=== PATIENT | female | born 1935 | race African-American/Black ===

== ENCOUNTER 2021-08-07 08:01 | Inpatient (IN) | payer OTHER, MEDICAID ==
[~2021-08-07] VITALS: Ht 167.6 cm; Wt 73.0 kg
[2021-08-07 11:17] LABS: BASOPHILS % 0.1 % (0.0-2.0); CHLORIDE 103 mEq/L (98-107); EOSINOPHILS % 0.3 % (0.0-5.0); HEMATOCRIT. 33.2 % (36.0-48.0); HEMOGLOBIN. 10.9 g/dL (12.0-16.0); LYMPHOCYTES % 14.3 % (20.0-50.0); MEAN CORPUSCULAR HEMOGLOBIN 27.1 pg (28.0-32.0); MEAN CORPUSCULAR VOLUME 82.8 fL (81.0-99.0); MEAN PLATELET VOLUME 8.3 fl (7.4-10.4); MONOCYTES % 5.4 % (2.0-8.0); NEUTROPHILS % 79.9 % (40.0-76.0); PLATELET 261 x1000/uL (130-400); RED CELL DISTRIBUTION WIDTH 20.8 % (11.6-14.6)
[2021-08-07 11:32] LABS: ETHANOL BLOOD < 10 mg/dL
[2021-08-07] MEDS ORDERED: DIPHENHYDRAMINE 50MG/ML VIAL IV ONE (12:00)
[2021-08-07 12:39] LABS: *AMPHETAMINES SCREEN URINE NEGATIVE (NEGATIVE); *BARBITURATES SCREEN URINE NEGATIVE (NEGATIVE); *BENZODIAZEPINES SCREEN URINE NEGATIVE (NEGATIVE)
[2021-08-07 12:40] LABS: *COCAINE SCREEN URINE NEGATIVE (NEGATIVE); CANNABINOID URINE SCREEN NEGATIVE (NEGATIVE); METHADONE URINE SCREEN NEGATIVE (NEGATIVE); OPIATES URINE SCREEN NEGATIVE (NEGATIVE); PHENCYCLIDINE URINE SCREEN NEGATIVE (NEGATIVE)
[2021-08-07] MEDS ORDERED: HYDROCODONE/ACETAMINOPHEN 5/325MG TABLET PO PRN (16:30)
[2021-08-07] MEDS ORDERED: GUAIFENESIN 200MG/10ML SUGAR FREE UDC PO PRN (16:30)
[2021-08-07] MEDS ORDERED: DEXTROSE 50% WATER 50ML SYRINGE IV PRN (16:30)
[2021-08-07] MEDS ORDERED: HYDRALAZINE 20MG/ML VIAL IV PRN (16:30)
[2021-08-07] MEDS ORDERED: IPRATROPIUM/ALBUTEROL 0.5-3(2.5)MG/3ML NEB HHN PRN (16:30)
[2021-08-07] MEDS ORDERED: MORPHINE SULFATE 2 MG/ML CPJ (NOT FOR IM USE) IV PRN (16:30)
[2021-08-07] MEDS ORDERED: MAGNESIUM/ALUMINUM HYDROXIDE/SIMETHICONE 30ML UDC PO PRN (16:30)
[2021-08-07] MEDS ORDERED: CLONIDINE 0.1MG TABLET PO PRN (16:30)
[2021-08-07] MEDS ORDERED: ONDANSETRON HCL 4MG/2ML INJ IV PRN (16:30)
[2021-08-07] MEDS ORDERED: DOCUSATE SODIUM 100MG CAPSULE PO PRN (16:30)
[2021-08-07] MEDS ORDERED: ACETAMINOPHEN 325MG TABLET PO PRN (16:30)
[2021-08-07] MEDS ORDERED: LORAZEPAM 2MG/ML CPJ IV PRN (16:30)
[2021-08-07] MEDS: BLOOD SUGAR DIAGNOSTIC STRIP TEST SCH ×2 (16:52→21:00)
[2021-08-07] MEDS: INSULIN LISPRO 100 UNITS/ML SUBCUT SCH ×2 (17:50→21:57)
[2021-08-07 18:30] VITALS: BP 116/62
[2021-08-07 19:00] VITALS: BP 110/50
[2021-08-07 20:00] VITALS: BP 111/36
[2021-08-07] MEDS: ENOXAPARIN 30MG/0.3ML SYR SUBCUT SCH (20:41)
[2021-08-07] MEDS: DIPHENHYDRAMINE 50MG/ML VIAL IV PRN (20:46)
[2021-08-07] MEDS: SODIUM CHLORIDE 0.9% INJ 3ML FLUSH IVF SCH (22:04)
[2021-08-08] VITALS: BP 103/46
[2021-08-08 01:02] LABS: CREATINE KINASE 46 IU/L (26-192)
[2021-08-08 01:03] LABS: CREATINE KINASE MB FRACTION < 1.0 ng/mL (0.5-3.6)
[2021-08-08 04:00] VITALS: BP 112/45
[2021-08-08] MEDS: DIPHENHYDRAMINE 50MG/ML VIAL IV PRN (04:53)
[2021-08-08] MEDS: SODIUM CHLORIDE 0.9% INJ 3ML FLUSH IVF SCH ×2 (05:20→22:00)
[2021-08-08 06:27] LABS: CHLORIDE 103 mEq/L (98-107)
[2021-08-08 06:30] LABS: BASOPHILS % 0.1 % (0.0-2.0); EOSINOPHILS % 1.6 % (0.0-5.0); HEMATOCRIT. 29.6 % (36.0-48.0); HEMOGLOBIN. 9.7 g/dL (12.0-16.0); LYMPHOCYTES % 30.1 % (20.0-50.0); MEAN CORPUSCULAR HEMOGLOBIN 27.4 pg (28.0-32.0); MEAN CORPUSCULAR VOLUME 83.9 fL (81.0-99.0); MEAN PLATELET VOLUME 8.5 fl (7.4-10.4); MONOCYTES % 6.9 % (2.0-8.0); NEUTROPHILS % 61.3 % (40.0-76.0); PLATELET 252 x1000/uL (130-400); RED BLOOD CELL COUNT 3.53 mill/uL (4.2-5.4); RED CELL DISTRIBUTION WIDTH 20.7 % (11.6-14.6)
[2021-08-08 06:35] LABS: CREATINE KINASE 66 IU/L (26-192)
[2021-08-08 06:38] LABS: CREATINE KINASE MB FRACTION < 1.0 ng/mL (0.5-3.6)
[2021-08-08] MEDS: BLOOD SUGAR DIAGNOSTIC STRIP TEST SCH ×4 (07:37→21:03)
[2021-08-08] MEDS: INSULIN LISPRO 100 UNITS/ML SUBCUT SCH ×4 (07:38→21:13)
[2021-08-08 08:00] VITALS: BP 115/58
[2021-08-08 09:20] LABS: T4 FREE 1.01 ng/dL (0.76-1.46)
[2021-08-08 12:00] VITALS: BP 129/70
[2021-08-08] MEDS: TRIAMCINOLONE ACETONIDE 0.1% CREAM 15GM TOP SCH ×2 (12:58→21:14)
[2021-08-08 12:59] LABS: CREATINE KINASE 46 IU/L (26-192)
[2021-08-08 13:00] LABS: CREATINE KINASE MB FRACTION < 1.0 ng/mL (0.5-3.6); D-DIMER 19.98 mg/L FEU (<0.50); INR 1.1; PROTHROMBIN TIME 11.8 sec (9.6-11.0)
[2021-08-08] MEDS ORDERED: FURO40TA5 PO (15:33)
[2021-08-08] MEDS ORDERED: CALC667C PO (15:33)
[2021-08-08] MEDS ORDERED: ATEN50TA PO (15:33)
[2021-08-08] MEDS ORDERED: ATOR20TA65 PO (15:33)
[2021-08-08] MEDS ORDERED: AMLO10TA80 PO (15:33)
[2021-08-08 15:50] VITALS: BP 103/59
[2021-08-08] MEDS ORDERED: NALOXONE HCL 0.4MG/ML VIAL IV PRN (16:00)
[2021-08-08] MEDS ORDERED: *PATIENT'S OWN MEDICATION STORAGE XX SCH (16:15)
[2021-08-08] MEDS: ENOXAPARIN 30MG/0.3ML SYR SUBCUT SCH (17:00)
[2021-08-08 20:00] VITALS: BP 102/41
[2021-08-08 20:14] LABS: HEPATITIS B SURFACE ANTIGEN NEGATIVE
[2021-08-08] MEDS ORDERED: EPOETIN ALFA-EPBX 4,000 UNIT/ML VIAL SUBCUT SCH (21:00)
[2021-08-08] MEDS: ATENOLOL 50 MG TABLET PO SCH (21:00)
[2021-08-09] VITALS (7 sets, daily range): BP systolic 101–136; BP diastolic 41–54
[2021-08-09 01:16] LABS: CREATINE KINASE 39 IU/L (26-192)
[2021-08-09 01:18] LABS: CREATINE KINASE MB FRACTION < 1.0 ng/mL (0.5-3.6)
[2021-08-09] MEDS: SODIUM CHLORIDE 0.9% INJ 3ML FLUSH IVF SCH ×3 (06:00→21:16)
[2021-08-09] MEDS: BLOOD SUGAR DIAGNOSTIC STRIP TEST SCH ×4 (07:20→21:15)
[2021-08-09 07:27] LABS: CREATINE KINASE 41 IU/L (26-192)
[2021-08-09 07:31] LABS: CREATINE KINASE MB FRACTION < 1.0 ng/mL (0.5-3.6)
[2021-08-09] MEDS: INSULIN LISPRO 100 UNITS/ML SUBCUT SCH ×4 (07:35→21:16)
[2021-08-09] MEDS: AMLODIPINE 10MG TABLET PO SCH (08:25)
[2021-08-09] MEDS: ATENOLOL 50 MG TABLET PO SCH ×2 (08:26→21:15)
[2021-08-09] MEDS: TRIAMCINOLONE ACETONIDE 0.1% CREAM 15GM TOP SCH ×2 (08:33→21:15)
[2021-08-09] MEDS: ATORVASTATIN CALCIUM 20MG TABLET PO SCH (08:33)
[2021-08-09] MEDS: FUROSEMIDE 40MG TABLET PO SCH (08:33)
[2021-08-09] MEDS: ENOXAPARIN 30MG/0.3ML SYR SUBCUT SCH (17:07)
[2021-08-10 04:00] VITALS: BP 167/62
[2021-08-10] MEDS: SODIUM CHLORIDE 0.9% INJ 3ML FLUSH IVF SCH ×2 (05:50→14:00)
[2021-08-10] MEDS: BLOOD SUGAR DIAGNOSTIC STRIP TEST SCH ×3 (06:27→16:54)
[2021-08-10] MEDS: INSULIN LISPRO 100 UNITS/ML SUBCUT SCH ×3 (06:27→16:55)
[2021-08-10 08:05] VITALS: BP 118/53
[2021-08-10] MEDS: ATENOLOL 50 MG TABLET PO SCH (10:00)
[2021-08-10] MEDS: AMLODIPINE 10MG TABLET PO SCH (10:00)
[2021-08-10] MEDS: TRIAMCINOLONE ACETONIDE 0.1% CREAM 15GM TOP SCH (10:06)
[2021-08-10] MEDS: FUROSEMIDE 40MG TABLET PO SCH (10:06)
[2021-08-10] MEDS: ATORVASTATIN CALCIUM 20MG TABLET PO SCH (10:06)
[2021-08-10 12:00] VITALS: BP 100/55
[2021-08-10 16:00] VITALS: BP 117/43
[2021-08-10] MEDS: ENOXAPARIN 30MG/0.3ML SYR SUBCUT SCH (17:00)
[2021-08-10 17:35] VITALS: BP 117/43
== END 2021-08-10 19:27 | disposition home or self-care (01) | DRG 314 ==
LOC: ER 08:01 → 6WST 16:09 → EDBEDREQTM 16:12 → EDBEDREQ 16:12 → ENRESERV 16:30
PROVIDERS: ADMIT Internal Medicine; ATTEND Internal Medicine
PROC: 5A1D70Z Performance of Urinary Filtration, Intermittent, Less than 6 Hours Per Day (ICD-10-PCS; principal; 2021-08-09)
PROC: 5A1D70Z Performance of Urinary Filtration, Intermittent, Less than 6 Hours Per Day (ICD-10-PCS; 2021-08-10)
DX: T82.868A Thrombosis due to vascular prosthetic devices, implants and grafts, initial encounter (principal); N18.6 End stage renal disease; I12.0 Hypertensive chronic kidney disease with stage 5 chronic kidney disease or end stage renal disease; E87.5 Hyperkalemia; E11.22 Type 2 diabetes mellitus with diabetic chronic kidney disease; I51.7 Cardiomegaly; E21.3 Hyperparathyroidism, unspecified; G90.8 Other disorders of autonomic nervous system; D63.8 Anemia in other chronic diseases classified elsewhere; Y83.8 Other surgical procedures as the cause of abnormal reaction of the patient, or of later complication, without mention of misadventure at the time of the procedure; E78.5 Hyperlipidemia, unspecified; Z20.822 Contact with and (suspected) exposure to COVID-19; L29.9 Pruritus, unspecified; Z99.2 Dependence on renal dialysis; Z82.49 Family history of ischemic heart disease and other diseases of the circulatory system; Y92.89 Other specified places as the place of occurrence of the external cause; Z79.899 Other long term (current) drug therapy
CPT/HCPCS: 36415; 71045; 80053; 80061; 80305; 80320; 82550; 82553; 82962; 83036; 83880; 84439; 84443; 84484; 85025; 85379; 86705; 86709; 86803; 87340; 87426; 93005; 93306; 93970; 97161; 99285; J0885; J1200; J1650; J1815; G0480